=== PATIENT | male | born 1950 | race Caucasian/White ===

== ENCOUNTER → 2016-10-04 | Outpatient (CLI) | payer OTHER ==
--- NOTE | 2016-10-04 07:41 | DIAGNOSTIC IMAGING REPORT ---
CHEST CT WITH CONTRAST CT DOSE: 1227.50 mGy.cm HISTORY: NON HODGKIN'S LYMPHOMA TECHNIQUE: Multiaxial CT images of the chest were performed following the intravenous administration of contrast. COMPARISON: Chest CT 05/15/2016. FINDINGS: Left neck base/supraclavicular lymphadenopathy is again noted. This is not significantly change. The dominant lymph node continues to measure 3.6 cm. Single mildly enlarged left superior mediastinal lymph node measuring 2 cm. This is also unchanged. No new mediastinal or hilar lymphadenopathy. The heart is normal in size. No pleural or pericardial effusions. Mild right axillary lymphadenopathy remains unchanged. Dominant lymph node measures 15 mm. Mild diffuse esophageal thickening persists. Bilateral adrenal gland nodularity remains unchanged. Normal caliber thoracic aorta with no evidence for dissection. The central pulmonary arteries are patent. No suspicious lytic or blastic osseous lesions. No pneumothorax. Small amount of mucoid material within the trachea. Mild emphysema. Punctate calcified granuloma within the lingula and a small slightly nodular scarlike density. This remains stable. Scarlike density at the base of the right middle lobe remains unchanged. No new focal lung consolidations. IMPRESSION: 1. No change in the lymphadenopathy within the neck and chest as described above. 2. Small amount of mucoid material within the trachea. No new focal lung consolidations to suggest pneumonia. 3. Mild emphysema. 4. Mild diffuse esophageal wall thickening, unchanged. 5. Please refer to the same day abdomen and pelvis CT for further evaluation of the upper abdominal structures. Electronically signed by: Ethan Worthington M.D. 10/04/2016 7:39 AM Dictated Date/Time: 10/04/2016 7:30 AM
--- NOTE | 2016-10-04 07:59 | DIAGNOSTIC IMAGING REPORT ---
CT SCAN OF THE ABDOMEN AND PELVIS WITH IV CONTRAST CLINICAL HISTORY: Non-Hodgkin's lymphoma. COMPARISON STUDY: Abdominal CT dated 05/15/2016 and 04/18/2008. PET/CT dated 11/15/2015. TECHNIQUE: Following the IV administration of 116 cc of Optiray 320, CT scan of the abdomen and pelvis is performed from the lung bases to the proximal femora. Images are reviewed in the axial, sagittal, and coronal planes. IV contrast was administered without complication. Automated dose control exposure was utilized. FINDINGS: Lung bases: The heart is normal in size and without pericardial effusion. The lung bases are clear. There is a tiny hiatal hernia. Liver: The contrast-enhanced liver is normal in size, contour, and attenuation. There is no intrahepatic biliary ductal dilatation. The hepatic veins and portal veins are patent. Gallbladder: Unremarkable. Spleen: Normal in size and attenuation measuring 12.2 cm in length. Pancreas: Unremarkable. Adrenal glands: There is a 1.5 cm indeterminate left adrenal nodule seen on image #116. A 0.8 cm right adrenal nodule is seen image #101. These are unchanged dating back to 2007 and of doubtful significance. Kidneys: The contrast enhanced kidneys are normal in size and without hydronephrosis. The kidneys enhance symmetrically. Bilateral renal cysts measure up to 2.2 cm. Additional subcentimeter cortical hypodensities also likely represent cysts but are too small for definitive characterization. Abdominal vasculature: The abdominal aorta is normal in course and caliber noting mild to moderate atherosclerotic calcification. Bowel: The cecum is located in the right upper quadrant. No bowel obstruction is identified. The appendix is well-visualized and normal. Peritoneum: There is no intraperitoneal free air or abdominal ascites. Lymphadenopathy: There are mildly enlarged retroperitoneal lymph nodes. A left periaortic node on image #171 measures 1.2 x 1.0 cm (previously measured 1.6 x 1.3 cm) A retrocaval node on image #195 measures 1.4 x 1.8 cm right the cyst previously measured 1.6 x 2.1 cm). A right iliac chain node on image #224 measures 1.7 x 1.5 cm (previously measured 2.3 x 1.3 cm), and a right iliac chain node on image #266 measures 1.4 x 2.1 cm (previously measured 2.2 x 2.8 cm). There is no upper abdominal, mesenteric, pelvic sidewall, or inguinal lymphadenopathy. Pelvic viscera: The the prostate gland is mildly enlarged and heterogeneous. The bladder is normal as visualized. There are small bilateral fat-containing hernias, right larger than left. Skeletal structures: There is mild lumbosacral spondylosis. No lytic or blastic lesions are seen. IMPRESSION: 1. Modest decrease in size of enlarged retroperitoneal and iliac chain lymph nodes as compared to the 05/15/2016 examination. 2. No progressive adenopathy is identified in the abdomen or pelvis. 3. The spleen is normal in size. 4. No acute infectious or inflammatory findings are identified. 5. Additional changes as above. Electronically signed by: Kareem Jon M.D. 10/04/2016 7:58 AM Dictated Date/Time: 10/04/2016 7:46 AM
== END | disposition home or self-care (01) ==
LOC: C.CTS 06:31
PROVIDERS: ATTEND Internal Medicine Hematology & Oncology
DX: C82.11 Follicular lymphoma grade II, lymph nodes of head, face, and neck (principal)

== ENCOUNTER → 2017-04-02 | Outpatient (CLI) | payer OTHER ==
[~2017-04-02] MED LIST: OPTIRAY 320 IV PRN
--- NOTE | 2017-04-02 06:56 | DIAGNOSTIC IMAGING REPORT ---
CHEST CT WITH CONTRAST CT DOSE: HISTORY: Lymphoma Non-Hodgkin LYMPHOMA TECHNIQUE: Multiaxial CT images of the chest were performed following the intravenous administration of contrast. COMPARISON: 10/04/2016 FINDINGS: Generally stable lower left neck base and supraclavicular adenopathy. Dominant node measures 3.5 cm which is to given statistical difference is unchanged. Mediastinal nodes are unaltered. No significant or bulky adenopathy at this time is appreciated. Right axillary adenopathy is slightly diminished. Lungs remain clear. Thoracic aorta is normal in course and caliber. IMPRESSION: Stable CT of the chest. No new or progressive adenopathy. Electronically signed by: Jarred Madsen M.D. 04/02/2017 6:55 AM Dictated Date/Time: 04/02/2017 6:48 AM
--- NOTE | 2017-04-02 07:07 | DIAGNOSTIC IMAGING REPORT ---
ABD/PELVIS IV AND ORAL CONT HISTORY: 58-year-old male presents for follow-up exam of non-Hodgkin's lymphoma. COMPARISON: CT abdomen and pelvis 10/04/2016 TECHNIQUE: Axial CT images of the abdomen and pelvis were obtained following the intravenous administration of 94 mL Optiray 320. Oral contrast was also administered. FINDINGS: There is minimal subsegmental pleural parenchymal scarring within the anterior lung bases bilaterally. There is no pneumoperitoneum. Inferior cardiac chambers are unremarkable. The liver, spleen, pancreas, adrenal glands and gallbladder are within normal limits. There are multiple stable appearing low attenuating lesions of the kidneys bilaterally, several which are too small to characterize however suggest cysts. The largest lesion within the lateral aspect of the interpolar right kidney, 2.0 x 1.9 cm. No renal calculi or hydronephrosis. There is mild circumferential wall thickening of the distal esophagus. No bowel obstruction. The appendix appears normal within the right lower quadrant. There is moderate degree of mixed plaquing of the abdominal and iliac vasculature. There is an unchanged opacity within the mid PMs. Circumferential wall thickening of the urinary bladder is unchanged. There is improved appearance of the previously described retroperitoneal and iliac chain adenopathy. Index pericaval lymph node previously measured 1.6 x 1.0 cm on image 45 series 3 of the study dated 10/04/2016 and today measures 1.0 x 0.7 cm on image 46 of series 3. Additional index node includes a right iliac chain lymph node on image 54 of series 3 of the prior exam which measured 1.4 x 2.0 cm, now measuring 1.3 x 0.8 cm. No new adenopathy or suspicious mass lesions. No suspicious lytic or blastic bony lesions. There is advanced intervertebral disc space narrowing at the L4-L5 and L5-S1 levels. IMPRESSION: 1. Decreased size of the previously described retroperitoneal and iliac chain adenopathy suggests positive response to therapy. No new adenopathy or suspicious mass lesions are identified within the abdomen or pelvis. No splenomegaly. 2. Mild circumferential wall thickening of the distal esophagus may reflect esophagitis. This can be correlated with endoscopy if clinically indicated. 3. Additional incidental findings as above. Electronically signed by: Guzman Falcon 04/02/2017 7:05 AM Dictated Date/Time: 04/02/2017 6:54 AM
== END | disposition home or self-care (01) ==
LOC: C.CTS 06:22
PROVIDERS: ATTEND Internal Medicine Hematology & Oncology
DX: C82.11 Follicular lymphoma grade II, lymph nodes of head, face, and neck (principal)

== ENCOUNTER → 2017-06-24 | Outpatient (CLI) | payer OTHER ==
--- NOTE | 2017-06-24 16:00 | DIAGNOSTIC IMAGING REPORT ---
BONE SCAN 3PHASE WHOLE BODY CLINICAL HISTORY: 67 years-old Male presenting with PAIN/SWELLING LEFT KNEE, AVN VS STRESS FX, left hip pain, acute left knee pain history of lymphoma. TECHNIQUE: Following the IV administration of 27 mCi of technetium 99m MDP, three-phase bone scan of the legs was performed. Anterior and posterior flow images as well as anterior and posterior blood pool phase images were acquired. Bone phase imaging of whole body was performed at three hours in multiple obliquities. COMPARISON: Correlation made to PET/CT from 11/15/2015. FINDINGS: Initial flow images centered at the knees demonstrate symmetric distribution of radiotracer from the vasculature to the soft tissues. Blood pool images demonstrate no focal increased uptake between the levels of the proximal to mid femoral diaphyses and ankles. Mild relatively increased uptake bilaterally in the region of the proximal tibiofibular articulation may be degenerative. Notably the hip joints were excluded from the [id number]. 3 hour delayed whole body imaging demonstrates expected excretion of radiotracer into the urinary collecting system. Focal bilateral uptake at the acromioclavicular joints likely degenerative. No other focal increased uptake is appreciated. Specifically, the hips and knees appear symmetric and within normal limits. IMPRESSION: 1. Mild degenerative changes at the bilateral acromioclavicular joints and potentially at the proximal tibiofibular articulations bilaterally. No other abnormality. Electronically signed by: Gorge Mena M.D. 06/24/2017 3:59 PM Dictated Date/Time: 06/24/2017 3:52 PM
== END | disposition home or self-care (01) ==
LOC: C.NUCL 12:24
DX: M25.562 Pain in left knee (principal)

== ENCOUNTER → 2018-02-10 | Outpatient (CLI) | payer OTHER ==
--- NOTE | 2018-02-10 07:12 | DIAGNOSTIC IMAGING REPORT ---
CT SCAN OF THE CHEST WITH IV CONTRAST CLINICAL HISTORY: Lymphoma. COMPARISON STUDY: Chest CT scans dated 04/02/2017 and 03/17/2008. TECHNIQUE: Following the IV administration of 93 cc of Optiray 320, CT scan of the thorax was performed from the thoracic inlet to the upper abdomen. Images are reviewed in the axial, sagittal, and coronal planes. IV contrast was administered without complication. A dose lowering technique was utilized adhering to the principles of ALARA. CT DOSE: 923.72 mGy.cm FINDINGS: Thyroid: Imaged portions of the thyroid gland are normal in size and attenuation. Thoracic aorta: The thoracic aorta is normal in caliber and demonstrates standard 3-vessel arch anatomy. No dissection is seen. Pulmonary vasculature: The pulmonary trunk is normal in caliber. There are no filling defects identified in the central pulmonary vessels to indicate pulmonary embolus. Note that this examination was not protocoled for evaluation of the pulmonary arteries. Heart: The heart is normal in size and without pericardial effusion. There are coronary artery calcifications. Lungs and pleural spaces: Mild emphysematous change is identified. There is no airspace consolidation or pleural effusion. Mild diffuse peribronchial thickening is noted. Minimal secretions are noted in the trachea. Lower neck: Cervical lymphadenopathy is partially visualized. This appears modestly progressed from the 04/02/2017 examination. A left supraclavicular node on image #1 measures at least 4.2 x 3.8 cm (previously measuring 3.6 x 2.8 cm). Mediastinum: A high left prevascular node on image #46 measures 3.3 x 2.1 cm (previously measuring 2.7 x 1.6 cm). No additional enlarged mediastinal lymph nodes are identified. Kerri: Clear. Axillae: There is no axillary lymphadenopathy. Upper abdomen: There is a tiny hiatal hernia. A 1.7 cm left adrenal nodule is unchanged from previous. This likely represents an adenoma but cannot be definitively characterized. The spleen is normal in size measuring 8.6 cm and length. A 9 mm hypervascular focus in the left hepatic lobe as seen on image #237. This is unchanged from previous and likely represents a small flash filling hemangioma. Skeletal structures: No lytic or blastic bony lesions are seen. Mild degenerative change is noted throughout the thoracic spine and in the shoulders. IMPRESSION: 1. There are enlarged lymph nodes identified in the lower neck and superior mediastinum. These have modestly increased in size from the 04/02/2017 examination. 2. No hilar or axillary adenopathy is seen. The spleen is normal in size. 3. Mild emphysema. 4. No airspace consolidation or pleural effusion is identified. 5. Mild diffuse peribronchial thickening suggests reactive airway disease. 6. Additional findings as above. Electronically signed by: Kareem Jon M.D. 02/10/2018 7:10 AM Dictated Date/Time: 02/10/2018 7:03 AM
--- NOTE | 2018-02-10 08:01 | DIAGNOSTIC IMAGING REPORT ---
ABDOMEN AND PELVIS CT WITH IV AND ORAL CONTRAST CT DOSE: HISTORY: Lymphoma. TECHNIQUE: Multiaxial CT images of the abdomen and pelvis were performed following the use of intravenous and oral contrast. A dose lowering technique was utilized adhering to the principles of ALARA. COMPARISON STUDY: Abdomen and pelvis CT 04/02/2017. FINDINGS: A punctate calcified granuloma seen within the lingula. Otherwise, the lungs are clear. No suspicious lytic or blastic osseous lesions. Small fat-containing right inguinal hernia. The liver, gallbladder, spleen, right adrenal gland, and pancreas are unremarkable. No hydronephrosis. Stable bilateral renal hypodense lesions. Stable left adrenal gland nodule. Retroperitoneal lymph nodes remain stable and measure subcentimeter in size. Therefore, the the use do not meet CT criteria for pathologic involvement. No mesenteric lymphadenopathy. The right common iliac lymph nodes have decreased in size. Dominant lymph node measures 8 mm, previously measuring 10 mm. Mild calcified plaque within the normal caliber abdominal aorta. No inguinal lymphadenopathy. The bladder wall is mildly thickened which may be due to underdistention. No bowel wall thickening or obstruction. Normal appendix. Prostate gland is mildly enlarged. IMPRESSION: 1. Stable subcentimeter retroperitoneal lymph nodes. 2. Decrease in size in the subcentimeter right common iliac lymph nodes. 3. No new lymphadenopathy identified. 3. Additional chronic findings as described above. Electronically signed by: Ethan Worthington M.D. 02/10/2018 7:59 AM Dictated Date/Time: 02/10/2018 7:45 AM
== END | disposition home or self-care (01) ==
LOC: C.CTS 06:26
PROVIDERS: ATTEND Internal Medicine Hematology & Oncology
DX: C82.11 Follicular lymphoma grade II, lymph nodes of head, face, and neck (principal)

== ENCOUNTER → 2018-05-22 | Outpatient (CLI) | payer OTHER | END | disposition home or self-care (01) | LOC: C.PATHSPEC 16:47 | PROVIDERS: ATTEND Plastic Surgery | DX: D18.01 Hemangioma of skin and subcutaneous tissue (principal) ==

== ENCOUNTER 2024-06-04 06:49 | Inpatient (IN) ==
--- OUTSIDE RECORDS SUMMARY | 2024-06-04 06:52 | External Medical Summary | Summary of Care ---
Author Name Unknown Organization [facility] Address [address] [place] [address] Phone [phone] Care Team Providers Care Relief Master Name Role Phone Justyn Reardon DO Primary Care Provider [phone] Reason for Visit * Reason Onset Date Comments Test Results Lab 03/05/2024 Encounter Details Date Type Department Care Team (Late st Contact Info) Description 03/05/2024 Telephone Hematology/Oncology [facility] [address] [facility] [place] [address] Vernon Coleman MD [address] [facility] [place] [address] Test Results Lab Allergies No known active allergiesdocumented as of this encounter (statuses as of 03/05/2024) Medications Medication Sig Dispensed Refills Start Date End Date Status buPROPion HCl ER (XL) 150 MG Oral Tablet Extended Release 24 Hour (Wellbutrin XL)Indications:Cigare tte nicotine dependence without complication Take 1 Tablet by mouth in the morning and 1 Tablet before bedtime. 180 Tablet 3 03/28/2023 Active documented as of this encounter (statuses as of 03/05/2024) Active Problems Problem Noted Date Diagnosed Date Follicular lymphoma grade II 05/19/2018 Lymph node enlargement 01/02/2009 Sleep apnea 04/23/2005 documented as of this encounter (statuses as of 03/05/2024) Resolved Problems Problem Noted Date Diagnosed Date Resolved Date Prediabetes 03/06/2020 10/09/2023 Overview: Per Prediabetes protocol documented as of this encounter (statuses as of 03/05/2024) Immunizations Name Administration Dates Next Due COVID-19 mRNA, LNP-s, No Pre serve, 2-Dose Series ([employer]) 07/16/2021,10/06/2020,09/15/2020 COVID-19, LNP-s, No Preserve , Sudhir-sucrose, Ages 12+ (Pfizer) 01/17/2022 COVID-19, MRNA-LNP, 23-24, P F, 30 MCG/0.3 mL, 12 YRS AND ABOVE, IM (PFIZER-Comirnaty) 08/27/2023 Covid-19, Mrna, Lnp-s, Pf, B ivalent, 30 Mcg, IM, 12 yrs and above (Pfizer) 08/01/2022 Pneumococcal Conjugate Vacc, 13 Valent (Prevnar) 05/19/2018 Pneumococcal Conjugate Vacci ne, 20-valent ([id number]) 03/28/2023 Seasonal Influenza, Quadriva lent Hd, 65+ Yrs 07/27/2021,07/14/2020 Seasonal Influenza, Split, I IV3, With Preserve, Inj 06/29/2015,07/17/2010 TDAP (age 10 and older)(Boostrix) 03/28/2023 documented as of this encounter Social History Tobacco Use Types Packs/Day Years Used Date Smoking Tobacco: Former Cigarettes 1 25 0 09/29/1974 - 09/29/1999 Passive Smoke Exposure: Past Smokeless Tobacco: Never Alcohol Use Standard Drinks/Week Comments Yes 0 (1 standard drink = 0.6 oz pur e alcohol) Occ PHQ-2 Answer Date Recorded PHQ Adult Total Score 0 03/28/2023 Hunger Vital Sign Answer Date Recorded Within the past 12 months, y ou worried that your food would run out before you got the money to buy more. Never true 03/28/20 23 Within the past 12 months, t he food you bought just didn't last and you didn't have money to get more. Never true 03/28/2023 Sex and Gender Information Value Date Recorded Sex Assigned at Not on file Gender Identity Not on file Sexual Orientation Not on file Job Start Date Occupation Industry Not on file Not on file Not on file documented as of this encounter Miscellaneous Notes * Telephone Encounter - Shasha Alvarez LPN - 03/05/2024 3:16 PM EDT Called and spoke with patient, informed him of lab result note from Provider below. Patient verbalized understanding, denies any further needs or requests. * Telephone Encounter - Shasha Alvarez LPN - 03/05/2024 3:14 PM EDT ----- Message from Vernon Coleman MD sent at 03/05/2024 1:49 PM EDT ----- -LDH --> 128 which is in normal range (03/03/2024). documented in this encounter Plan of Treatment Upcoming Encounters Date Type Department Care Team (Late st Contact Info) Description 03/29/2024 10:00 AM EDT Office Visit Family Practice [address] [place] [address] [address] [place] [address] Justyn Reardon, [address] [place] [address] 07/23/2024 8:45 AM EDT Office Visit Hematology/Oncology [facility] [address] [place] [id number] Vernon Coleman MD [address] [place] [address] Scheduled Procedures Name Priority Associated Diagnoses Date/Ti me COLONOSCOPY FLEXIBLE PROXIMA L DIAGNOSTIC Recall History of colon polyps Family history of colon cancer Health Maintenance Due Date Last Done Comments Zoster Vaccines (1 of 2) 1969 COVID-19 Vaccine ( season) 2023 08/27/2023, 08/01/2022, 01/17/2022, Additional history exists Depression Screening 03/28/2024 03/28/2023 Influenza Vaccine (FLU shot) (Season Ended) 2024 07/27/2021, 07/14/2020, 06/29/2015, Additional history exists Colonoscopy 11/22/2025 11/22/2022, 10/31, 04/24/2018, Additional history exists DTaP,Tdap,and Td Vaccines (3 - Td or Tdap) 03/28/2033 03/28/2023, 01/25/2011 Pneumococcal Vaccine: 65+ Years Completed 03/28/2023, 05/19/2018 GARDASIL-HPV IMMUNIZATION SERIES Aged Out No longer eligible based on patient's age to complete this topic MENINGOCOCCAL (MENACTRA/MENVEO) Aged Out No longer eligible based on patient's age to complete this topic documented as of this encounter Medical Devices Not on filedocumented as of this encounter Care Teams Relief Master Relationship Specialty Start Date End Date Justyn Reardon DO [address] [place] [address] PCP - General Internal Medicine 06/06/23 documented as of this encounter
--- OUTSIDE RECORDS SUMMARY | 2024-06-04 06:52 | External Medical Summary | Summary of Care ---
Author Name Unknown Organization [facility] Address [address] [place] [address] Phone [phone] Care Team Providers Care Pool Coordinator Name Role Phone Justyn Reardon DO Primary Care Provider [phone] Encounter Details Date Type Department Care Team (Late st Contact Info) Description 03/03/2024 Result Scan Unspecified Department Vernon Coleman MD [address] [place] [address] <No scans attached> Allergies No known active allergiesdocumented as of [...] mRNA, LNP-s, No Pre serve, 2-Dose Series ([employer]) 07/16/2021,10/06/2020,09/15/2020 COVID-19, LNP-s, No Preserve , Sudhir-sucrose, Ages 12+ (Pfizer) 01/17/2022 COVID-19, MRNA-LNP, 23-24, P F, 30 MCG/0.3 mL, 12 YRS AND ABOVE, IM ([employer]-Comirnat) 08/27/2023 Covid-19, Mrna, Lnp-s, Pf, B ivalent, 30 Mcg, IM, 12 yrs and above ([employer]) 08/01/2022 Pneumococcal Conjugate Vacc, 13 Valent (Prevnar) 05/19/2018 Pneumococcal Conjugate Vacci ne, 20-valent ([id number]) 03/28/2023 Seasonal Influenza, Quadriva lent Hd, 65+ [...] on file documented as of this encounter Plan of Treatment Upcoming Encounters Date Type Department Care Team (Late st Contact Info) Description 03/29/2024 10:00 AM EDT Office Visit Family Practice [address], [place] [address] [place] [address] Justyn Reardon DO [address] [place] [address] 07/23/2024 8:45 AM EDT Office Visit Hematology/Oncology [facility] [place] [address] [place] [phone] [facility] [address] [facility] [address] Scheduled Procedures Name Priority Associated Diagnoses Date/Ti [...] Not on filedocumented as of this encounter Procedures Procedure Name Priority Date/Time Associated Diagnosis Comments OUTSIDE LAB RESULTS 03/03/2024 documented in this encounter Results * OUTSIDE LAB RESULTS (03/03/2024) 03/03/2024 Vernon Coleman MD LABORATORY documented in this encounter Care Teams Pool Coordinator Relationship Specialty Start Date End Date Justyn Reardon DO [address] [place] [address] PCP - General Internal Medicine 06/06/23 documented as of this encounter
--- OUTSIDE RECORDS SUMMARY | 2024-06-04 06:52 | External Medical Summary | Summary of Care ---
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 180 Tablet 3 03/28/2023 Active documented as of this encounter (statuses as of 04/08/2024) Active Problems Problem Noted Date Diagnosed Date Follicular lymphoma grade II 05/19/2018 Lymph node enlargement 01/02/2009 Sleep apnea 04/23/2005 documented as of this encounter (statuses as of 04/08/2024) Resolved Problems Problem Noted Date Diagnosed Date Resolved Date Prediabetes 03/06/2020 10/09/2023 Overview: Per Prediabetes protocol documented as of this encounter (statuses as of 04/08/2024) Immunizations Name Administration Dates Next Due COVID-19 mRNA, LNP-s, No Pre serve, 2-Dose Series ([employer]) 07/16/2021,10/06/2020,09/15/2020 COVID-19, LNP-s, No Preserve , Sudhir-sucrose, Ages 12+ (Pfizer) 01/17/2022 COVID-19, MRNA-LNP, 23-24, P F, 30 MCG/0.3 mL, 12 YRS AND ABOVE, IM ([facility]) 04/05/2024,08/27/2023 Covid-19, Mrna, Lnp-s, Pf, B ivalent, 30 Mcg, IM, 12 yrs and above (Greats) 08/01/2022 Pneumococcal Conjugate Vacc, 13 Valent (Prevnar) 05/19/2018 Pneumococcal Conjugate Vacci ne, 20-valent ([id number]) 03/28/2023 Seasonal Influenza, Quadriva lent Hd, 65+ Yrs 07/27/2021,07/14/2020 Seasonal Influenza, Split, I IV3, With Preserve, Inj 06/29/2015,07/17/2010 TDAP (age 10 and older)(Boostrix) 03/28/2023 Zoster Vaccine Recombinant (Shingrix) 04/05/2024 documented as of this encounter Social History Tobacco Use Types Packs/Day Years Used Date Smoking Tobacco: Former Cigarettes 1 25 0 09/29/1974 - 09/29/1999 Passive Smoke Exposure: Past Smokeless Tobacco: Never Tobacco Cessation:Counseling Given: Yes Alcohol Use Standard Drinks/Week Comments Yes 0 (1 standard drink = 0.6 oz pur e alcohol) Occ PHQ-2 Answer Date Recorded PHQ Adult Total Score 0 04/05/2024 Hunger Vital Sign Answer Date Recorded Within the past 12 months, y ou worried that your food would run out before you got the money to buy more. Never true 03/28/20 23 Within the past 12 months, t he food you bought just didn't last and you didn't have money to get more. Never true 03/28/2023 Childcare Answer Date Recorded Do you feel overwhelmed with taking care of a child, family member or friend? No 03/28/2023 Does your family need help f inding childcare? (Household - for ages 0-17 years) Not on file 03/28/2023 Clothing Answer Date Recorded Have you been unable to get clothing when it was really needed? No 03/28/2023 Is your family able to get c lothes or diapers when needed? (Household - for ages 0-17 years) Not on file 03/28/2023 Personal Safety Answer Date Recorded Do you feel unsafe or have concerns for your saf ety? No 03/28/2023 Do you have concerns for you r family's safety? (Household - for ages 0-17 years) Not on file 03/28/2023 Utilities Answer Date Recorded Do you have trouble paying y our heating, water, or electric bill? (Adult - for ages 18 years and over) Not on file 03/30/2024 Is your family able to pay t he heat, water, or electric bill? (Household - for ages 0-17 years) Not on file 03/30/2024 Does your family have access to good internet? (Household - for ages 0-17 years) Not on file 03/30/2024 Employment Status Answer Date Recorded Are you unemployed or without regular income? No 03/28/2023 Does the household have a re gular source of income? (Household - for ages 0-17 years) Not on file 03/28/2023 Social Connections Answer Date Recorded How often do you feel lonely or isolated from those around you? (Adult - for ages 18 years and over) Not on file 03/30/2024 Financial Resource Strain Answer Date R ecorded Do you have any trouble payi ng for your medications, or do you think you might in the future? No 03/28/2023 Does your family have troubl e paying for medicine? (Household - for ages 0-17 years) Not on file 03/28/2023 Transportation Needs Answer Date Record ed READ ONLY Do you have troubl e getting a ride to medical visits or work? Never True 03/28/2023 Does your family have a hard time getting a ride to doctors visits? (Household - for ages 0-17 years) Not on file 03/28/2023 Has lack of transportation k ept you from medical appointments, meetings, work, or from getting things needed for daily living? Check all that apply. (Adult - for ages 18 years and over) Not on file 03/28/2023 Do you (or your family) have trouble finding or paying for a ride (transportation)? (Household - for ages 0-17 years) Not on file 03/28/2023 Housing Stability Answer Date Recorded Do you currently live in a s helter or have no steady place to sleep at night? No 03/28/2023 READ ONLY Do you think you a re at risk of becoming homeless? No 03/28/2023 Does your family worry about paying for your home or becoming homeless? (Household - for ages 0-17 years) Not on file 0 03/28/2023 Are you homeless or worried that you might be in the future? (Adult - for ages 18 years and over) Not on file Are you (or your family) pineda eless or worried that you might be in the future? (Household - for ages 0-17 years) Not on file Food Insecurity Answer Date Recorded Do you need food for this week? No 03/28/2023 Are you able to get enough f ood for your family? (Household - for ages 0-17 years) Not on file 03/28/2023 Does your family need food t his week? (Household - for ages 0-17 years) Not on file 03/28/2023 Do you always have enough fo od for your family? (Household - for ages 0-17 years) Not on file 03/28/2023 Sex and Gender Information Value Date Recorded Sex Assigned at Male 04/05/2024 3:31 PM EDT Gender Identity Male 04/05/2024 3:31 PM EDT Sexual Orientation Straight 04/05/2024 3: 31 PM EDT Job Start Date Occupation Industry Not on file Not on file Not on file documented as of this encounter Last Filed Vital Signs Vital Sign Reading Time Taken Comments Blood Pressure 120/60 04/05/2024 3:32 PM EDT Pulse 82 04/05/2024 3:32 PM EDT Temperature 36.2 C (97.1 F) 04/05/2024 3:32 PM ED T Respiratory Rate 16 04/05/2024 3:32 PM EDT Oxygen Saturation 95% 04/05/2024 3:32 PM EDT Inhaled Oxygen Concentration - - Weight 69.8 kg (153 lb 12.8 oz) 04/05/2024 3:32 PM EDT Height 167 cm (5' 5.75") 04/05/2024 3:32 PM EDT Body Mass Index 25.01 04/05/2024 3:32 PM EDT documented in this encounter Patient Instructions * Patient Instructions* Jennifer Bui, METALIZER - 04/05/2024 3:31 PM EDT Patient Instructions - Fall Prevention (This education is for all patients over 65 regardless of symptoms) Remember to take your current medications as prescribed. In order to prevent falls, you are encouraged to: Exercise Utilize assistive/adaptive devices Avoid multifocal lenses when walking Avoid hazards in home Maintain a regular toileting schedule Any questions please contact our office. Preventing Falls in the Home (This education is for all patients over 65 regardless of symptoms) As you get older, falls are more likely. Thats because your reaction time slows. Your muscles and joints may also get stiffer, making them less flexible. Illness, medications, and vision changes can also affect your balance. A fall could leave you unable to live on your own. To make your home safer, follow these tips: Floors Put nonskid pads under area rugs Remove throw rugs Replace worn floor coverings Tack carpets firmly to each step on carpeted stairs. Put nonskid strips on the edges of uncarpeted stairs Keep floors and stairs free of clutter and cords Arrange furniture so there are clear pathways Clean up any spills right away Bathrooms Install grab bars in the tub or shower Apply nonskid strips or put a nonskid rubber mat in the tub or shower Sit on a bath chair to bathe Use bathmats with nonskid backing Lighting Keep a flashlight in each room Put a nightlight along the pathway between the bedroom and the bathroom [employer] Patient Education Copyright 2008 - 2010 [employer] except where otherwise noted Preventing Falls: Exercises to Improve Balance, Flexibility, Strength, and Staying Power (This education is for all patients over 65 regardless of symptoms) Certain types of exercises may help make you less likely to fall. Try the ones below. Or do other exercises that your healthcare provider suggests. Depending on your health, you may need to start slowly. Dont let that stop you. Even small amounts of exercise can help you. Be sure to talk to yourhealthcare provider before starting any exercise program. Improve Balance Many types of exercise can help improve balance. Dago chi and yoga are good examples. Heres another one to try. You can do it anytime and almost anywhere. Stand next to a counter or solid support. Push yourself up onto your tiptoes. Hold for 5 seconds. If you start to lose your balance, hold on to the counter. Rest and repeat 5 times. Work up to holding for 20 to 30 seconds, if you can. Increase Flexibility Being more flexible makes it easier for you to move around safely. Try exercises like the seated hamstring stretch. Sit in a chair and put one foot on a stool. Straighten your leg and reach with both hands down either side of your leg. Reach as far down your leg as you can. Hold for about 20 seconds. Go back to the starting position. Then repeat 5 times. Switch legs. Build Strength Resistance exercises help build strength. You can do them without equipment. Or you can use weights, elastic bands, or special machines. One such exercise is called the biceps curl. You can hold a 1 pound weight or even a can of soup. Do this exercise at least 3 times a week. Strive for everyday. Sit up straight in a chair. Keep your elbow close to your body and your wrist straight. Bend your arm, moving your hand up to your shoulder. Then slowly lower your arm. Repeat 5 times. Switch to the other arm. Build Your Staying Power Aerobic exercises make your heart and lungs stronger so you can keep moving longer. Walking and swimming are two of the best types of exercises you can do. Using a stationary bike is great, too. Find an aerobic exercise that you enjoy. Start slowly and build up. Even 5 minutes is helpful. Aimfor a goal of 30 minutes, at least 3 times a week. You dont have to do 30 minutes in one session. Break it up and walk a little throughout the day. More Helpful Tips Start easy. Slowly work up to doing more. Talk with your healthcare provider about the best exercises for you. Call senior centers or health clubs about exercise programs. If needed, have a family member watch you walk every so often to check your stability. Exercise with a friend. Choose an activity you both enjoy. Try exercises that you can do anytime, anywhere. Here are two examples. Have someone with you when you first try these: Practice walking by placing one foot right in front of the other. Stand up and sit down 10 times. Repeat this throughout the day. [employer] Patient Education Copyright 2008 [employer] except where otherwise noted. Preventing Falls: Moving Safely Using a Cane or Walker (This education is for all patients over 65 regardless of symptoms) Keep the cane away from your feet so you dont trip. A walking aid, such as a cane or walker, can help you stay more independent and avoid falls. Remember to keep your walking aid within easy reach when youre in a chair or in bed. And learn how to use it safely so you dont injure yourself. Using a Cane If you have a stronger side, hold the cane on that side. Get your balance. Move the cane and your weaker leg forward. Support your weight on both the cane and your weaker side. Step with your stronger leg. Start again from step 1. If youre using a folding walker, be sure you know how to lock it open. Check that its locked open before each use. Using a Walker Roll the walker (or lift it, if youre using one without wheels) forward about 12 inches. Step forward with your weaker leg first. Use the walker to help keep your balance. Bring your other foot forward to the center of the walker. Start again from step 1. Helpful Tips Check with your healthcare provider about the right walking aid to use. Ask about a walker with a seat attached. Check the tips of your cane or walker to make sure they have nonskid covers. Move slowly from room to room. Dont lechuga. Sit down to get dressed. Use a carmen pack or backpack to keep your hands free. Get help for jobs that mean climbing, even on a stepstool. [employer] Patient Education Copyright 2008 [employer] except where otherwise noted. Treating Urinary Incontinence in Men (This education is for all patients over 65 regardless of symptoms) You can't always control the release of urine. You may leak urine. Or you may not be able to hold your urine until you can get to a bathroom. This is called urinary incontinence. The problem can be managed. Talk to your doctor about your treatment options. Taking Medications Prescription medications may help you. They may: Help the sphincter to work better. (This is the muscle that closes to keep urine from leaking out of the bladder.) Help stop the bladder from say too often to push urine out. Help the bladder muscles contract with more force. Help relax the sphincter muscle and allow urine to flow more freely. Making Changes to Your Routine Certain changes in your daily routine may help. These include: Avoiding caffeine and alcohol. Using timed voiding. This is following a schedule for drinking fluids and urinating. Doing Kegel exercises daily. These exercises involve tightening the muscles in your sphincter and around your bladder to help strengthen them. Your doctor can explain how to do them. Using a Catheter A catheter is a narrow tube that is inserted through the urethra into the bladder. It drains urine.A condom catheter covers the penis. It channels urine into a collection bag. It is worn most of thetime. Intermittent catheterization means inserting a catheter to drain the bladder, then removing it. This is done on a regular schedule. Having Surgery If other options don't work, surgery may be recommended. If surgery is an option, your healthcare provider can discuss it with you and explain its risks and benefits. Healing After Prostate Surgery Surgery on the prostate gland can cause incontinence. Most often, the incontinence is only for a short time. It clears up when healing is complete. Very rarely, prostate surgery can result in permanent incontinence. ~~PATIENT INSTRUCTIONS FOR SHINGRIX VACCINE~~ Possible side effects of Shingrix vaccine, (shingles), are usually mild and can include: 1. Soreness or redness at injection site 2. Low grade fever 3. Body aches You may use a fever / pain reducing medication as needed for these symptoms. LET YOUR DOCTOR KNOW IMMEDIATELY IF YOU HAVE DIFFICULTY BREATHING OR SWALLOWING, EXPERIENCE ITCHINGOF FEET OR HANDS, HAVE SWELLING OF EYES, FACE OR INSIDE OF NOSE. ~~PATIENT INSTRUCTIONS FOR SHINGRIX VACCINE~~ Possible side effects of Shingrix vaccine, (shingles), are usually mild and can include: 1. Soreness or redness at injection site 2. Low grade fever 3. Body aches You may use a fever / pain reducing medication as needed for these symptoms. LET YOUR DOCTOR KNOW IMMEDIATELY IF YOU HAVE DIFFICULTY BREATHING OR SWALLOWING, EXPERIENCE ITCHINGOF FEET OR HANDS, HAVE SWELLING OF EYES, FACE OR INSIDE OF NOSE. 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 He is feeling well and continues to work without difficulty. No chest pain or shortness of breath have occurred. Weight is stable and appetite is good. No night sweats or fatigue. He continues to follow with Dr. Coleman for Oncologic care. Patient Active Problem List Diagnosis Sleep apnea Lymph node enlargement Follicular lymphoma grade II (HCC) Current Outpatient Medications Medication Sig Dispense Refill buPROPion HCl ER (XL) 150 MG Oral Tablet Extended Release 24 Hour (Wellbutrin XL) Take 1 Tablet by mouth in the morning and 1 Tablet before bedtime. 180 Tablet 3 No current facility-administered medications for this visit. The patient's medication list was reviewed and updated as needed. Past Medical History: Diagnosis Date Benign neoplasm of colon 10/07/11 hyperplastic polyps repeat colonoscopy in 5 years Other specified forms of hearing loss Past Surgical History: Procedure Laterality Date COLONOSCOPY W/ LESION REMOVAL, SNARE 05/23/2008 repeat 2-3 yrs COLONOSCOPY W/ LESION REMOVAL, SNARE polyps at appendiceal oriface proximal and, distal sigmoid colon, hyperplastic, COLONOSCOPY, DIAGNOSTIC (RECTUM) 04/24/2018 adenomatous & hyperplastic polyps, repeat 3 yrs/[facility] COLON[facility], [facility]AG[facility]STIC (RECTUM) 11/22/2022 benign adenomatous polyps, repeat 3 yrs / COLONOSCOPY FLEXIBLE PROXIMAL DIAGNOSTIC performed by Rock Pena MD at ENDOSCOPY [facility] COLONOSCOPY, GI REFERRAL OP 2002 WNL REMOVE CATARACT, INSERT LENS PROSTH Right 06/20/2020 REMOVE CATARACT, INSERT LENS PROSTH Left 07/03/2020 RIGHT HEART CATHETERIZATION 1995 WNL SMALL BOWEL ENDOSCOPY W/BX 05/23/2008 bxs UPPER ENDOSCOPY GI REFERRAL OP 2002 WNL Review of patient's allergies indicates: No Known Allergies Review of Systems Constitutional: Negative for appetite change, fatigue and unexpected weight change. HENT: Negative for congestion, sore throat and trouble swallowing. Respiratory: Negative for cough, shortness of breath and wheezing. Cardiovascular: Negative for chest pain, palpitations and leg swelling. Gastrointestinal: Negative for abdominal pain, blood in stool, constipation, diarrhea, nausea and vomiting. Genitourinary: Negative for dysuria, frequency and hematuria. Musculoskeletal: Negative for back pain and gait problem. Neurological: Negative for dizziness, syncope and headaches. Hematological: Positive for adenopathy. Does not bruise/bleed easily. Psychiatric/Behavioral: Negative for confusion and decreased concentration. OBJECTIVE: BP 120/60 | Pulse 82 | Temp 36.2 C (97.1 F) | Resp 16 | Ht 1.67 m (5' 5.75") | Wt 69.8 kg (153 lb 12.8 oz) | SpO2 95% | BMI 25.01 kg/m | BSA 1.8 m Physical Exam Vitals and nursing note reviewed. Constitutional: General: He is not in acute distress. Appearance: Normal appearance. He is not toxic-appearing. HENT: Head: Normocephalic and atraumatic. Cardiovascular: Rate and Rhythm: Normal rate and regular rhythm. Heart sounds: Normal heart sounds. No murmur heard. No gallop. Pulmonary: Effort: Pulmonary effort is normal. Breath sounds: Normal breath sounds. No wheezing, rhonchi or rales. Abdominal: General: Bowel sounds are normal. There is no distension. Palpations: Abdomen is soft. Tenderness: There is no abdominal tenderness. Musculoskeletal: Right lower leg: No edema. Left lower leg: No edema. Neurological: Mental Status: He is alert and oriented to person, place, and time. Mental status is at baseline. Motor: No weakness. Gait: Gait normal. Psychiatric: Mood and Affect: Mood normal. Behavior: Behavior normal. Thought Content: Thought content normal. 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 Justyn Reardon DO 3:32 PM 04/08/2024 * Jennifer Bui LPN - 04/05/2024 3:32 PM EDT Does the patient have active shingles? No If, yes, patient must wait to receive vaccine till after rash is gone. Does the patient have an illness today with a fever more than 101?F? No Has the patient ever had a serious allergic reaction after receiving a vaccination? No Has the patient had a blood test showing they are not immune to Chicken Pox (rare)? No If yes, should get Chicken pox vaccine instead of shingrix. Verified patient has prescription/drug coverage. Patient has been informed that [employer] copays are close to $0. In most cases copays will be around $10. The maximum co-pay patients may get could as high as $200. not applicable Shingrix Vaccine Information Sheet has been provided. Jennifer Bui LPN 04/05/2024 3:39 PM IMMUNIZATION ADMINISTRATION DOCUMENTATION Time Out Procedure Performed: Yes Patient Identified (Ask Name/Date of ): Yes Patient allergic to latex?No VFC Stock? No Immunization(s) verified: Yes, Immunization Name: Shingrix and covid , VIS Sheet(s) given: Yes Verified Side and Site: Yes Verified Shot(s) with Parent(s)/Patient: Yes Shingrix was administered per clinic protocol. Patient received the Shingrix VIS (Vaccine Information Sheet). Jennifer Bui LPN, 04/05/2024, 3:39 PM documented in this encounter Plan of Treatment Upcoming Encounters Date Type Department Care Team (Late st Contact Info) Description 07/23/2024 8:45 AM EDT Office Visit Hematology/Oncology [facility] [address] [place] [address] [place] [phone] Vernon Coleman MD [address] [address] 04/05/2025 4:00 PM EDT Office Visit Family Practice [address] [place] [address] [place] [id number] Justyn Reardon DO [address] [place] [address] Scheduled Procedures Name Priority Associated Diagnoses Date/Ti me COLONOSCOPY FLEXIBLE PROXIMA L DIAGNOSTIC Recall History of colon polyps Family history of colon cancer Health Maintenance Due Date Last Done Comments Influenza Vaccine (FLU shot) (#1) 2024 07/27/2021, 07/14/2020, 06/29/2015, Additional history exists Zoster Vaccines (2 of 2) 05/31/2024 04/05/2024 Depression Screening 04/05/2025 04/05/2024 Colonoscopy 11/22/2025 11/22/2022, 02/2 12/2022, 04/24/2018, Additional history exists DTaP,Tdap,and Td Vaccines (3 - Td or Tdap) 03/28/2033 03/28/2023, 01/25/2011 Pneumococcal Vaccine: 65+ Years Completed 03/28/2023, 05/19/2018 COVID-19 Vaccine Completed 04/05/2024, , 08/01/2022, Additional history exists HPV (Gardasil) Vaccine Aged Out No lo nger eligible based on patient's age to complete this topic MENINGOCOCCAL (MENACTRA/MENVEO) Aged Out No longer eligible based on patient's age to complete this topic documented as of this encounter Medical Devices Not on filedocumented as of this encounter Visit Diagnoses Diagnosis 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
--- NOTE | 2024-06-04 07:09 | Emergency Department Note ---
Impression & Plan Hypoxia ADMIT ED Provider Note HPI: History obtained from patient. The patient is a 73-year-old gentleman with history of B-cell lymphoma, not currently undergoing any treatment, presents the emergency department with a chief complaint of cough, sinus congestion, and shortness of breath that is been ongoing for the past 3 days. Patient states that he recently was visiting some family members in [place] who had tested positive for COVID. Patient denies any shortness of breath however he was noted to be saturating at 86% on room air on arrival, he was placed on nasal cannula oxygen with good improvement. On my assessment in the ED the patient is otherwise hemodynamically stable, he appears to be in no acute distress on my initial assessment. Patient denies any chest pain, denies any current shortness of breath, patient is alert and oriented on arrival and does not have any focal deficits. ROS: - Per HPI Differential Diagnosis: Viral upper respiratory infection with acute bronchospasm, COPD exacerbation, acute coronary syndrome, pneumonia, pulmonary embolism, pulmonary edema, acute CHF exacerbation, amongst other potential pathologies. *Outpatient medications and allergy history reviewed. PE: General: Alert HEENT: Normocephalic, trachea midline Eyes: Extraocular eye movement is intact, no scleral erythema Pulmonary: Bilateral expiratory wheezing, no crackles Cardio: Regular rate and rhythm GI: Abdomen is soft to palpation : No suprapubic tenderness MSK: No evidence of trauma or malformation of the extremities, no edema Skin: No evidence of rash Neuro: Alert, no focal deficits Psychiatric: Cooperative INDEPENDENT INTERPRETATIONS: library monitor: (As interpreted by myself): - An order was placed for continuous cardiac monitoring - Patient was noted to be in sinus rhythm with a rate of 95 EKG: (As interpreted by myself): Rate: 98 Rhythm: Sinus rhythm Intervals: Within normal limits ST changes: No ST elevation Time: 0808 Chest x-ray: (As interpreted by myself): No focal infiltrate Interventions provided in ED: -DuoNeb breathing treatment, IV Solu-Medrol Medical Decision Making: IV was established and lab work obtained, patient was placed on library monitor. Patient was placed on nasal cannula oxygen with good improvement in his presenting hypoxia. Lab work shows no leukocytosis, hemoglobin is normal, platelet count is normal, venous blood gas was obtained that shows evidence of respiratory acidosis with a pH of 7.29 and a pCO2 of 69. CMP does not show any evidence of any critical findings. BNP is within normal limits, troponin is negative, viral panel testing is positive for enterovirus/rhinovirus. I suspect the patient likely has an element of COPD exacerbation from viral upper respiratory infection causing his hypoxia. On my reassessment his nasal cannula oxygen was removed following his DuoNeb breathing treatment and his oxygen saturation is at 89%. Given the patient's hypoxia, in addition to presenting wheezing with viral upper respiratory infection, I think he would benefit from admission to the hospital for further management. I discussed the patient's presentation with the on-call hospitalist for [facility], Dr. Yuan, and the patient was placed for admission in stable condition. Consultants/Discussions held with other healthcare providers: -Hospitalist, Dr. Yuan Disposition discussion held by myself with: -Patient * CRITICAL CARE TIME: (36) minutes -Stabilization of hypoxia with presenting oxygen at 86% on room air requiring supplemental oxygen for correction, time spent at the bedside, interpretation of diagnostic studies, discussion with other healthcare providers and arrangement of admission. Diagnosis: 1. Hypoxia, acute 2. Viral upper respiratory infection, acute 3. Enterovirus/rhinovirus PCR testing positive 4. Hypercarbic respiratory failure, acute 5. 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 History of colonoscopy "a couple years ago" History of esophagogastroduodenoscopy (EGD) History of tonsillectomy History of tooth extraction wisdom teeth, regular teth Family History Mother Family hx of colon cancer Social History Smoking Status: Never smoker Second Hand Exposure: No; Do You Dip or Chew Tobacco: No; Hx Alcohol Use: Yes Alcohol type: wine Hx Substance Use: No Preferred Language: Czech Communication Ability: Effective Visual Impairment: No Limitations Sample Driller Required: No Beliefs That Will Affect Care: None Current Living Situation: Alone Feels Safe at Home: Yes Assistive Devices: Glasses, Hearing Aid - Bilateral and Other Allergies Allergies Allergy/AdvReac Type Severity Reaction Status Date / Time No Known Drug Allergies Allergy Unknown . Verified 09/25/22 13:37 Home Meds Home Medications Medication Instructions Recorded Confirmed bupropion HCl 100 mg tablet 150 mg PO BID 06/09/20 09/25/22 Results & Data (ED) Vital Signs Vital Signs - 24 hr 06/04/24 06:51 06/04/24 06:53 06/04/24 07:03 Temperature 35.5 C L Temperature Source Temporal Artery Scan Pulse Rate 108 H Pulse Rate [Apical] Pulse Rhythm [Apical] Respiratory Rate 18 Respiratory Effort / Characteristics Non-Labored Spontaneous Respiratory Depth Normal Respiratory Pattern Regular Blood Pressure 134/83 Blood Pressure [Right Arm] Blood Pressure Mean 100 Blood Pressure Mean [Right Arm] Blood Pressure Position Sitting Pulse Oximetry 87 L 86 L 86 L Oxygen Delivery Method Room Air Room Air Room Air Oxygen Flow Rate Sepsis Recent Fever Within 48 Hours No Sepsis New/Unexplained Change in Mental Status N/A Sepsis Action Taken by Nursing No Action Required Oxygen Flow Rate - Titration Pulse Oximetry Post Tiitration 06/04/24 07:03 06/04/24 07:40 06/04/24 07:40 Temperature Temperature Source Pulse Rate Pulse Rate [Apical] 87 Pulse Rhythm [Apical] Regular Respiratory Rate 20 Respiratory Effort / Characteristics Respiratory Depth Normal Respiratory Pattern Blood Pressure Blood Pressure [Right Arm] 131/92 Blood Pressure Mean Blood Pressure Mean [Right Arm] 105 Blood Pressure Position Pulse Oximetry 86 L 99 99 Oxygen Delivery Method Nasal Cannula Nebulizer Nebulizer Oxygen Flow Rate 2 Sepsis Recent Fever Within 48 Hours Sepsis New/Unexplained Change in Mental Status Sepsis Action Taken by Nursing Oxygen Flow Rate - Titration Pulse Oximetry Post Tiitration 06/04/24 08:12 06/04/24 08:12 06/04/24 08:13 Temperature Temperature Source Pulse Rate 94 H Pulse Rate [Apical] Pulse Rhythm [Apical] Respiratory Rate Respiratory Effort / Characteristics Respiratory Depth Respiratory Pattern Blood Pressure Blood Pressure [Right Arm] Blood Pressure Mean Blood Pressure Mean [Right Arm] Blood Pressure Position Pulse Oximetry 100 89 L Oxygen Delivery Method Nebulizer Room Air Oxygen Flow Rate 6 Sepsis Recent Fever Within 48 Hours Sepsis New/Unexplained Change in Mental Status Sepsis Action Taken by Nursing Oxygen Flow Rate - Titration 0 2 Pulse Oximetry Post Tiitration 89 L 93 Laboratory Data 06/04/24 07:13 06/04/24 07:13 Lab Results 06/04/24 06/04/24 Range/Units 07:04 07:13 WBC 5.91 (4.8-10.8) K/ul RBC 5.07 (4.70-6.10) M/uL Hgb 15.1 (14.0-18.0) g/dl Hct 47.9 (42.0-52.0) % MCV 94.5 (80.0-100.0) fL MCH 29.8 (25.0-34.0) pg MCHC 31.5 L (32.0-36.0) g/dL RDW Std Deviation 46.3 (36.4-46.3) fL RDW Coeff of [place]leth 13.4 (11.5-14.5) % Plt Count 182 (130-400) K/uL MPV 10.1 (9.4-12.4) fL Immature Gran % (Auto) 0.3 % Neut % (Auto) 77.6 % Lymph % (Auto) 6.9 % Simpson % (Auto) 13.9 % Eos % (Auto) 1.0 % Baso % (Auto) 0.3 % Neut # (Auto) 4.58 (1.40-6.50) K/uL Lymph # (Auto) 0.41 L (1.20-3.40) K/uL Simpson # (Auto) 0.82 H (0.11-0.59) K/uL Eos # (Auto) 0.06 (0.00-0.50) K/uL Baso # (Auto) 0.02 (0.00-0.20) K/uL Immature Gran # (Auto) 0.02 (0.01-0.20) K/uL PT 10.7 (9.0-12.0) Seconds INR 1.0 (0.9-1.1) VBG pH 7.29 L (7.36-7.41) VBG pCO2 69 H (38-50) mmHg VBG pO2 41 mmHg VBG HCO3 33 mmol/L VBG O2 Saturation 70.6 % VBG Base Excess 4.1 mEq/L Sodium 140 (136-145) mmol/L Potassium 4.3 (3.5-5.1) mmol/L Chloride 101 (98-107) mmol/L Carbon Dioxide 33 H (21-32) mmol/L Anion Gap 6 (3-11) BUN 11 (6-23) mg/dl Creatinine 0.72 (0.6-1.4) mg/dl Est Cr Clr Drug Dosing 69.3 ml/min Est GFR ( Amer) 105.8 ml/min Est GFR (Non-Af Amer) 91.3 ml/min BUN/Creatinine Ratio 15.3 (10-20) Glucose 118 H (70-99(Fasting)) mg/dl Lactate 1.2 (0.4-2.0) mmol/L Calcium 9.1 (8.6-10.3) mg/dl Magnesium 2.1 (1.7-2.4) mg/dl Total Bilirubin 0.6 (0.2-1.0) mg/dl Direct Bilirubin 0.1 (0-0.2) mg/dl AST 19 (13-39) U/L ALT 9 (7-52) U/L Alkaline Phosphatase 76 (34-104) U/L Troponin I High Sens 5.4 (0-20) pg/ml B-Natriuretic Peptide 44 (0-100) pg/ml Total Protein 7.2 (6.0-8.3) gm/dl Albumin 4.7 (3.4-5.0) gm/dl Procalcitonin < 0.02 (0-0.5) ng/ml Adenovirus (PCR) Not Detected (NotDetected) B. pertussis DNA (PCR) Not Detected (NotDetected) B.parapertussis DNA PCR Not Detected (NotDetected) C. pneumoniae DNA (PCR) Not Detected (NotDetected) Coronavirus OC43 (PCR) Not Detected (NotDetected) Coronavirus HKU1 (PCR) Not Detected (NotDetected) Coronavirus 229E (PCR) Not Detected (NotDetected) SARS-CoV-2 (PCR) Not Detected (NotDetected) Coronavirus NL63 (PCR) Not Detected (NotDetected) Human Metapneumovir PCR Not Detected (NotDetected) Influenza Type A (PCR) Not Detected (NotDetected) Influenza Type B (PCR) Not Detected (NotDetected) M. pneumoniae (PCR) Not Detected (NotDetected) Parainfluenza 1 (PCR) Not Detected (NotDetected) Parainfluenza 2 (PCR) Not Detected (NotDetected) Parainfluenza 3 (PCR) Not Detected (NotDetected) Parainfluenza 4 (PCR) Not Detected (NotDetected) RSV (PCR) Not Detected (NotDetected) Entero/Rhino (PCR) DETECTED A (NotDetected) Administered Medications Discontinued Medications Albuterol (Albut/Ipratrop 3mg/0.5mg Neb 3 Ml Vial) 3 ml NEB NOW STA; Protocol Stop: 06/04/24 07:12 Last Admin: 06/04/24 07:32 Dose: 3 ml Documented By: ANTONIA Sodium Chloride (Nss) 500 mls @ 999 mls/hr IV .Q31M ONE Stop: 06/04/24 07:42 Last Infusion: 06/04/24 08:17 Dose: Infused Documented By: Admin: 06/04/24 07:32 Dose: 999 mls/hr Documented By: ANTONIA Methylprednisolone (Methylprednisolone 125 Mg/2 Ml Vial) 80 mg IV NOW STA Stop: 06/04/24 07:55 Last Admin: 06/04/24 08:07 Dose: 80 mg Documented By: ANTONIA Imaging Data Radiologist's Impression: Chest X-Ray 06/04/24 07:01 XR chest 1V portable HISTORY: 73 years-old Male Sepsis acute sepsis COMPARISON: Chest radiograph 01/27/2020, PET/CT 07/30/2023. TECHNIQUE: AP view of the chest FINDINGS: Cardiac silhouette is normal. There is mild prominence of the knee right hilar and paratracheal tissues. No pneumothorax, pleural effusion or airspace consolidation. Spondylotic spurring of the spine. IMPRESSION: 1. No acute process of the chest. 2. Possible underlying mediastinal lymphadenopathy. ACT 112: Negative or not required by law. The above report was generated using voice recognition software. It may contain grammatical, syntax or spelling errors. Electronically signed by: You Falcon M.D. 06/04/2024 7:52 AM Discharge Plan Visit Data Chief Complaint: Flu Like Symptoms Stated Complaint: RESPIRATORY FLU SYMPTOMS ED Provider: Jarred Chino Discharge Problem: Hypoxia Forms Stand Alone Forms: [facility] Prescriptions Prescriptions: No Action bupropion HCl 100 mg Tablet 150 mg PO BID Referrals Referrals: Justyn Reardon, [Primary Care Provider] -
[2024-06-04] MEDS: SODIUM CHLORIDE 0.9% 500 ML IV ONE (07:32)
[2024-06-04] MEDS: ALBUT/IPRATROP 3MG/0.5MG NEB 3 ML VIAL NEB STA (07:32)
[2024-06-04 07:34] LABS: Base Excess VBG 4.1 mEq/L; HCO3 VBG 33 mmol/L; Oxygen Saturation VBG 70.6 %; PCO2 VBG 69 mmHg (38-50); PO2 VBG 41 mmHg; pH VBG 7.29 (7.36-7.41)
[2024-06-04 07:50] LABS: Basophils # (auto) 0.02 K/uL (0.00-0.20); Basophils % (auto) 0.3 %; Eosinophils # (auto) 0.06 K/uL (0.00-0.50); Hematocrit (blood only) 47.9 % (42.0-52.0); Hemoglobin 15.1 g/dl (14.0-18.0); Immature Granulocytes # (auto) 0.02 K/uL (0.01-0.20); Immature Granulocytes % (auto) 0.3 %; Lymphocytes # (auto) 0.41 K/uL (1.20-3.40); Lymphocytes % (auto) 6.9 %; Mean Corpuscular Hemoglobin 29.8 pg (25.0-34.0); Mean Corpuscular Hgb Conc 31.5 g/dL (32.0-36.0); Mean Corpuscular Volume 94.5 fL (80.0-100.0); Mean Platelet Volume 10.1 fL (9.4-12.4); Monocytes # (auto) 0.82 K/uL (0.11-0.59); Monocytes % (auto) 13.9 %; Neutrophils # (auto) 4.58 K/uL (1.40-6.50); Neutrophils % (auto) 77.6 %; Platelet Count 182 K/uL (130-400); RDW Coefficient of Variation 13.4 % (11.5-14.5); RDW Standard Deviation 46.3 fL (36.4-46.3); Red Blood Count 5.07 M/uL (4.70-6.10); White Blood Count 5.91 K/ul (4.8-10.8)
--- NOTE | 2024-06-04 07:54 | XRay Report ---
XR chest 1V portable HISTORY: 73 years-old Male Sepsis acute sepsis COMPARISON: Chest radiograph 01/27/2020, PET/CT 07/30/2023. TECHNIQUE: AP view of the chest FINDINGS: Cardiac silhouette is normal. There is mild prominence of the knee right hilar and paratracheal tissu es. No pneumothorax, pleural effusion or airspace consolidation. Spondylotic spurring of the spine. IMPRESSION: 1. No acute process of the chest. 2. Possible underlying mediastinal lymphadenopathy. ACT 112: Negative or not required by law. The above report was generated using voice recognition software. It may contain grammatical, syntax o r spelling errors. Electronically signed by: You Falcon M.D. 06/04/2024 7:52 AM
[2024-06-04 07:59] LABS: Albumin Level 4.7 gm/dl (3.4-5.0); BUN Creatinine Ratio 15.3 (10-20); Bilirubin Direct 0.1 mg/dl (0-0.2); Bilirubin,Total 0.6 mg/dl (0.2-1.0); Calcium 9.1 mg/dl (8.6-10.3); Creatinine Clr Calc Pharmacy 69.3 ml/min; Est GFR (African American) 105.8 ml/min; Est GFR (Non-African American) 91.3 ml/min; Magnesium 2.1 mg/dl (1.7-2.4); Potassium 4.3 mmol/L (3.5-5.1); Total Protein 7.2 gm/dl (6.0-8.3)
[2024-06-04 08:02] LABS: Adenovirus PCR Not Detected (NotDetected); Bordetella parapertussis PCR Not Detected (NotDetected); Bordetella pertussis PCR Not Detected (NotDetected); Chlamydia pneumoniae PCR Not Detected (NotDetected); Coronavirus 229E PCR Not Detected (NotDetected); Coronavirus CoV-2 (COVID19)PCR Not Detected (NotDetected); Coronavirus HKU1 PCR Not Detected (NotDetected); Coronavirus NL63 PCR Not Detected (NotDetected); Coronavirus OC43PCR Not Detected (NotDetected); Human Metapneumovirus PCR Not Detected (NotDetected); Influenza A PCR Not Detected (NotDetected); Influenza B PCR Not Detected (NotDetected); Mycoplasma pneumoniae PCR Not Detected (NotDetected); Parainfluenza Virus 1 PCR Not Detected (NotDetected); Parainfluenza Virus 2 PCR Not Detected (NotDetected); Parainfluenza Virus 3 PCR Not Detected (NotDetected); Parainfluenza Virus 4 PCR Not Detected (NotDetected); Respiratory Syncytial VirusPCR Not Detected (NotDetected); Rhinovirus/Enterovirus PCR DETECTED (NotDetected)
[2024-06-04 08:05] LABS: Troponin I High Sensitivity 5.4 pg/ml (0-20)
[2024-06-04] MEDS: methylPREDNISolone 125 MG/2 ML VIAL IV STA (08:07)
[2024-06-04 08:14] LABS: Prothrombin Time 10.7 Seconds (9.0-12.0)
--- NOTE | 2024-06-04 08:54 | Electrocardiogram Report ---
Test Reason : Blood Pressure : */* mmHG Vent. Rate : 98 BPM Atrial Rate : 98 BPM P-R Int : 164 ms QRS Dur : 76 ms QT Int : 354 ms P-R-T Axes : 80 -1 72 degrees QTcB Int : 451 ms Sinus rhythm with occasional Premature ventricular complexes Otherwise normal ECG When compared with ECG of 27-Jan-2020 08:08, Premature ventricular complexes are now Present Nonspecific T wave abnormality has replaced inverted T waves in Lateral leads Confirmed by Noel Dupree ([id number]) on 06/04/2024 8:54:32 AM Referred By: REFERRED SELF Confirmed By: Noel Dupree
--- NOTE | 2024-06-04 09:02 | History & Physical Report ---
Date of Service June 04, 2024 Assessment & Plan (1) Acute respiratory failure with hypoxia and hypercapnia: (2) Acute bronchitis due to Rhinovirus: (3) Suspected chronic obstructive pulmonary disease based on initial evaluation: Plan: With acute exacerbation (4) B-cell lymphoma: Plan Patient presents with acute hypoxic hypercarbic respiratory failure in the setting of rhinovirus bronchitis and suspected COPD exacerbation. Patient is critically ill requires hospital level care including oxygen support and medical interventions. Admit to the MedSurg unit Support with oxygen, titrate as able DuoNebs scheduled and as needed Oral prednisone Scheduled mucolytic's and antitussives As needed Hycodan for cough At this time no indication for antibiotic therapy. Patient with viral bronchitis as a source of his symptoms will continue to monitor Continue his outpatient medications as ordered History of Present Illness Chief Complaint: Cough, congestion, mild shortness of breath Primary Care Provider: Justyn Reardon DO Patient is a 73-year-old gentleman who presents to the emergency room today with above complaints. Reports that a few weeks ago he is in [place] and was exposed to COVID. More recently he was visiting family in [place] and several then had some upper respiratory infection type symptoms. He returned to beginning the week started with a bit of a cough. As the week progressed got more congested. Last night he had intractable cough. Unable to really get good sleep. And noted to be a little bit more short of breath with his usual activity this morning prompting him to seek attention in the emergency room. In the emergency room was noted to be hypoxic on room air and tested positive for rhinovirus. With these findings he was referred to our service for further evaluation. Time my evaluation patient states he is feeling little bit more comfortable on supplemental oxygen. He denies any noted fevers. But does admit to being more tired and fatigued. His biggest complaint is this intractable cough that is interrupting his sleep. He does have some production of mucus which she reports is clear. No blood in the sputum. He states he did have a couple episodes of loose stools this week but no blood in the stool. Denies any problems with his bladder. No swelling in his hands arms legs or feet. No chest pain. No significant headaches, lightheadedness or dizziness. States he does have a history of smoking. However, he has never needed inhalers never been definitively diagnosed with COPD and never as needed steroids for any type of lung issues. Allergies Allergy/AdvReac Type Severity Reaction Status Date / Time No Known Drug Allergies Allergy Unknown . Verified 09/25/22 13:37 Home Medications Medication Instructions Recorded Confirmed Type bupropion HCl 100 mg tablet 150 mg PO BID 06/09/20 09/25/22 History Past Med/Surg History Problem List (Updated 06/04/24 @ 09:01 by Donato Carrero DO) Suspected chronic obstructive pulmonary disease based on initial evaluation B-cell lymphoma Acute bronchitis due to Rhinovirus Acute respiratory failure with hypoxia and hypercapnia Hypoxia (Acute) Encounter for pre-operative examination Lymphoma hx Medical History Anxiety Hx of hepatitis Lymphoma hx Surgical History H/O lymph node biopsy RT AXILLARY LEFT POSTERIOR 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 History of colonoscopy "a couple years ago" History of esophagogastroduodenoscopy (EGD) History of tonsillectomy History of tooth extraction wisdom teeth, regular teth Family History Mother Family hx of colon cancer Social History Smoking Status: Never smoker Second Hand Exposure: No; Do You Dip or Chew Tobacco: No; Hx Alcohol Use: Yes Alcohol type: wine Hx Substance Use: No Preferred Language: Mauritanian Communication Ability: Effective Visual Impairment: No Limitations Cotton Ginner Required: No Beliefs That Will Affect Care: None Current Living Situation: Alone Feels Safe at Home: Yes Assistive Devices: Glasses, Hearing Aid - Bilateral and Other Review of Systems Review of Systems: Pertinent positive and negative review of systems as mentioned in the HPI Physical Exam Physical Exam: Constitutional: Alert, ill in appearance, nontoxic HEENT: Mucous membranes moist. Sclera clear Neck: Soft, no adenopathy Lungs: Decreased breath sounds bilaterally, prolonged expiratory phase, poor airflow, tight wheezing throughout heard best anteriorly CV: S1-S2, regular Abdomen: Soft, nontender, nondistended Extremities: No significant edema Musculoskeletal: No significant joint tenderness Neuro: No focal deficits Psych: Cooperative, normal mood Results & Data Results & Data Vital Signs (Past 12 Hours) Vital Signs Temp Pulse Pulse Resp BP BP Pulse Ox 06/04/24 08:13 89 L 06/04/24 08:12 94 H 06/04/24 08:12 100 06/04/24 07:40 87 20 131/92 99 06/04/24 07:40 99 06/04/24 07:03 86 L 06/04/24 07:03 86 L 06/04/24 06:53 35.5 C L 108 H 18 134/83 86 L 06/04/24 06:51 87 L O2 Del Method O2 Flow Rate 06/04/24 08:13 Room Air 06/04/24 08:12 06/04/24 08:12 Nebulizer 6 06/04/24 07:40 Nebulizer 06/04/24 07:40 Nebulizer 06/04/24 07:03 Nasal Cannula 2 06/04/24 07:03 Room Air 06/04/24 06:53 Room Air 06/04/24 06:51 Room Air Diagnostic Findings Reviewed imaging, laboratory and diagnostic studies. Pertinent findings as below. Personally reviewed chest x-ray images, hyperinflated lungs, no consolidative infiltrate Personally reviewed EKG, sinus rhythm no acute ST-T wave changes Respiratory viral panel positive for rhinovirus CBC and BMP reviewed, stable Venous blood gas pO2 41, pCO2 69 Code Status & VTE Plan VTE Prophylaxis Plan VTE Prophylaxis will be ordered: Yes
[2024-06-04] MEDS ORDERED: ACETAMINOPHEN 325 MG TAB PO PRN (10:20)
[2024-06-04] MEDS ORDERED: MAGNESIUM HYDROXIDE SUSP 30 ML UDC PO PRN (10:20)
[2024-06-04] MEDS ORDERED: ONDANSETRON INJ 2 MG/ML 2 ML VIAL IV PRN (10:20)
[2024-06-04] MEDS ORDERED: ALBUT/IPRATROP 3MG/0.5MG NEB 3 ML VIAL NEB PRN (10:20)
[2024-06-04] MEDS ORDERED: ALUMINUM/MAGNESIUM SUSP 30 ML UDC PO PRN (10:20)
[2024-06-04] MEDS ORDERED: MELATONIN 3 MG TAB PO PRN (10:20)
[2024-06-04] MEDS: guaiFENesin 600 MG TABCR PO SCH (11:20)
[2024-06-04] MEDS: BENZONATATE 100 MG CAPSULE PO SCH (11:20)
[2024-06-04] MEDS: predniSONE 20 MG TAB PO SCH (11:20)
[2024-06-04] MEDS: ENOXAPARIN INJ 40 MG/0.4 ML SYR SQ SCH (11:21)
[2024-06-04] MEDS: ALBUT/IPRATROP 3MG/0.5MG NEB 3 ML VIAL INH SCH ×2 (11:26→14:37)
[2024-06-04] MEDS: COUGH DROP (SUGAR FREE) LOZ 24 LOZ/1 BOX BUCCAL PRN (16:47)
[2024-06-04] MEDS: buPROPion XL 150 MG TABCR PO SCH (20:55)
[2024-06-05 07:48] VITALS: BP 122/80; TEMP 97.9
[2024-06-05] MEDS: HYDROcodone/HOMATROPINE SYRUP 5MG/1.5MG 5ML UDP PO PRN (09:07)
--- NOTE | 2024-06-05 11:30 | Hospitalist Progress Note ---
Date of Service June 05, 2024 Assessment & Plan (1) Acute bronchitis due to Rhinovirus: Plan: Patient presents with acute hypoxic hypercarbic respiratory failure in the setting of rhinovirus bronchitis and suspected hyperreactive airway disease. Patient is critically ill requires hospital level care including oxygen support and medical interventions. Support with oxygen, titrate as able DuoNebs scheduled and as needed Oral prednisone Scheduled mucolytic's and antitussives As needed Hycodan for cough At this time no indication for antibiotic therapy. Patient with viral bronchitis as a source of his symptoms will continue to monitor Clinically much better today with minimal wheezing at rest and no shortness of breath even with activities He will have 2 step O2 saturation test prior to discharge this afternoon (2) Acute respiratory failure with hypoxia and hypercapnia: Plan: As above (3) Suspected chronic obstructive pulmonary disease based on initial evaluation: Plan: No history of COPD and/or asthma Likely to have hyperreactive airways disease (4) B-cell lymphoma: Plan: Has been followed up by Dr. Coleman as an outpatient No evidence of recurrence Will advised to have a follow-up Chest x-ray showed Hilar adenopathy Admission and Anticipated Discharge Date Admission Date: June 04, 2024 Subjective 06/05/2024 The patient was seen and examined in medical floor He has been feeling much better and wants to go home Minimal wheezing and reported to have oxygen saturation less than 88 with ambulation before Advised to have today stable O2 saturation test prior to discharge today Review of Systems Review of Systems: All systems reviewed and are unremarkable except as noted below Physical Exam Physical Exam: Lying in bed without any acute distress Constitutional: well developed, well nourished and average body habitus; not ill appearing Eyes: PERRL, conjunctivae normal, anicteric sclerae ENMT: external ear and nose normal, oropharynx normal Neck: trachea midline, no thyromegaly Respiratory: no respiratory distress Auscultation: + diminished lung sounds and + wheezes (Mild wheezing all over) Cardiovascular: Rate/Rhythm: regular rate and regular rhythm; not tachycardic Heart Sounds: normal S1 and normal S2; no murmur Extremities: no edema Gastrointestinal (Abdomen): Inspection/Auscultation: normal bowel sounds; abdomen not distended Percussion/Palpation: abdomen soft; abdomen nontender Musculoskeletal: No acute arthritis involving any of the joint Neurologic: normal touch/pain/proprioception and moves all extremities; no focal motor deficits Psychiatric: A+Ox3, euthymic affect Lymphatic: no cervical or axillary lymphadenopathy Results & Data Results & Data Vital Signs (Past 12 Hours) Vital Signs Temp Pulse Resp BP Pulse Ox O2 Del Method O2 Flow Rate 06/05/24 11:17 95 H 20 89 L Room Air 06/05/24 08:15 18 91 Nasal Cannula 1 06/05/24 08:00 20 89 L Room Air 06/05/24 07:47 36.6 C 68 18 122/80 99 Room Air 06/05/24 07:26 36.5 C 91 H 20 127/74 94 Nasal Cannula 2 06/05/24 07:15 91 H 16 97 Nasal Cannula 2 Medications Administered Current Inpatient Medications Acetaminophen (Acetaminophen 325 Mg Tab) 650 mg PO Q4H PRN PRN Reason: pain/fever Stop: 07/04/24 10:19 Al Hydrox/Mg Hydrox/Simethicone (Aluminum/Magnesium Susp 30 Ml Udc) 30 ml PO Q6H PRN PRN Reason: Dyspepsia Stop: 07/04/24 10:19 Albuterol (Albut/Ipratrop 3mg/0.5mg Neb 3 Ml Vial) 3 ml NEB Q2H PRN PRN Reason: Shortness of Breath/Wheezing Stop: 07/04/24 10:19 Albuterol (Albut/Ipratrop 3mg/0.5mg Neb 3 Ml Vial) 3 ml INH QIDR [facility] Stop: 07/04/24 14:59 Last Admin: 06/05/24 11:14 Dose: 3 ml Benzonatate (Benzonatate 100 Mg Capsule) 200 mg PO TID [facility]US Stop: 07/04/24 10:59 Last Admin: 06/05/24 08:53 Dose: 200 mg Bupropion HCl (Bupropion Xl 150 Mg Tabcr) 150 mg PO BID [facility] Stop: 07/04/24 20:59 Last Admin: 06/05/24 08:54 Dose: 150 mg Enoxaparin Sodium (Enoxaparin Inj 40 Mg/0.4 Ml Syr) 40 mg SQ Q24H [facility] Stop: 07/04/24 10:59 Last Admin: 06/04/24 11:21 Dose: Not Given Guaifenesin (Guaifenesin 600 Mg Tabcr) 1,200 mg PO Q12 [facility] Stop: 07/04/24 10:59 Last Admin: 06/05/24 08:53 Dose: 1,200 mg Hydrocodone Bit/Homatropine Methylb (Hydrocodone/Homatropine Syrup 5mg/1.5mg 5ml Udp) 5 ml PO Q6H PRN PRN Reason: Cough Stop: 06/18/24 10:19 Last Admin: 06/05/24 09:07 Dose: 5 ml Magnesium Hydroxide (Magnesium Hydroxide Susp 30 Ml Udc) 30 ml PO Q6H PRN PRN Reason: Constipation Stop: 07/04/24 10:19 Melatonin (Melatonin 3 Mg Tab) 6 mg PO HS PRN PRN Reason: Insomnia Stop: 07/04/24 10:19 Menthol (Cough Drop (Sugar Free) Catia 24 Catia/1 Box) 1 catia BUCCAL PRN PRN PRN Reason: Sore Throat Stop: 07/04/24 16:15 Last Admin: 06/04/24 16:47 Dose: 1 catia Ondansetron HCl (Ondansetron Inj 2 Mg/Ml 2 Ml Vial) 4 mg IV Q6H PRN PRN Reason: Nausea Stop: 07/04/24 10:19 Prednisone (Prednisone 20 Mg Tab) 40 mg PO QAM [facility] Stop: 06/09/24 10:59 Last Admin: 06/05/24 08:54 Dose: 40 mg
[2024-06-05 11:40] VITALS: O2SAT 91
[2024-06-05 12:50] VITALS: PULSE 87; RESP 20
--- NOTE | 2024-06-06 07:45 | Discharge Summary ---
Date of Service June 06, 2024 Admission HPI Per Admitting Provider Patient is a 73-year-old gentleman who presents to the emergency room today with above complaints. Reports that a few weeks ago he is in [place] and was exposed to COVID. More recently he was visiting family in [place] and several then had some upper respiratory infection type symptoms. He returned to beginning the week started with a bit of a cough. As the week progressed got more congested. Last night he had intractable cough. Unable to really get good sleep. And noted to be a little bit more short of breath with his usual activity this morning prompting him to seek attention in the emergency room. In the emergency room was noted to be hypoxic on room air and tested positive for rhinovirus. With these findings he was referred to our service for further evaluation. Time my evaluation patient states he is feeling little bit more comfortable on supplemental oxygen. He denies any noted fevers. But does admit to being more tired and fatigued. His biggest complaint is this intractable cough that is interrupting his sleep. He does have some production of mucus which she reports is clear. No blood in the sputum. He states he did have a couple episodes of loose stools this week but no blood in the stool. Denies any problems with his bladder. No swelling in his hands arms legs or feet. No chest pain. No significant headaches, lightheadedness or dizziness. States he does have a his tory of smoking. However, he has never needed inhalers never been definitively diagnosed with COPD and never as needed steroids for any type of lung issues. Admission Exam Per Admitting Provider Physical Exam: Constitutional: Alert, ill in appearance, nontoxic HEENT: Mucous membranes moist. Sclera clear Neck: Soft, no adenopathy Lungs: Decreased breath sounds bilaterally, prolonged expiratory phase, poor airflow, tight wheezing throughout heard best anteriorly CV: S1-S2, regular Abdomen: Soft, nontender, nondistended Extremities: No significant edema Musculoskeletal: No significant joint tenderness Neuro: No focal deficits Psych: Cooperative, normal mood Principal Diagnosis Acute bronchitis, rhinovirus infection, possible hyperreactive airway disease, Discharge Exam Lying in bed without any acute distress Constitutional well developed, well nourished and average body habitus; not ill appearing Eyes PERRL, conjunctivae normal, anicteric sclerae ENMT external ear and nose normal, oropharynx normal Neck trachea midline, no thyromegaly Respiratory no respiratory distress Auscultation: + diminished lung sounds and + wheezes (Mild wheezing all over) Cardiovascular Rate/Rhythm: regular rate and regular rhythm; not tachycardic Heart Sounds: normal S1 and normal S2; no murmur Extremities: no edema Gastrointestinal (Abdomen) Inspection/Auscultation: normal bowel sounds; abdomen not distended Percussion/Palpation: abdomen soft; abdomen nontender Neurologic normal touch/pain/proprioception and moves all extremities; no focal motor deficits Psychiatric A+Ox3, euthymic affect Lymphatic no cervical or axillary lymphadenopathy Discharge Data Allergies Allergy/AdvReac Type Severity Reaction Status Date / Time No Known Drug Allergies Allergy Unknown . Verified 09/25/22 13:37 Consultations 06/04/24 08:22 ED Decision to Admit Stat Hospital Course (1) Acute bronchitis due to Rhinovirus: Patient presents with acute hypoxic hypercarbic respiratory failure in the setting of rhinovirus bronchitis and suspected hyperreactive airway disease. Patient is critically ill requires hospital level care including oxygen support and medical interventions. Support with oxygen, titrate as able DuoNebs scheduled and as needed Oral prednisone Scheduled mucolytic's and antitussives As needed Hycodan for cough At this time no indication for antibiotic therapy. Patient with viral bronchitis as a source of his symptoms will continue to monitor Clinically much better today with minimal wheezing at rest and no shortness of breath even with activities He will have 2 step O2 saturation test prior to discharge this afternoon (2) Acute respiratory failure with hypoxia and hypercapnia: As above (3) Suspected chronic obstructive pulmonary disease based on initial evaluation: No history of COPD and/or asthma Likely to have hyperreactive airways disease (4) B-cell lymphoma: Has been followed up by Dr. Coleman as an outpatient No evidence of recurrence Will advised to have a follow-up Chest x-ray showed Hilar adenopathy Total Time Total Time Spent Total Time Spent (In Minutes): 35 minutes Discharge Plan Discharge Items Patient Disposition: Home - Self-Care Reason For Visit: RESPIRATORY FAILURE Discharge Diagnosis: Acute bronchitis, rhinovirus infection, possible hyperreactive airway disease, Condition on Discharge: Good Activity: Resume your previous activity Non-emergency contact: Primary Care Provider Call non-emergency contact if: you have any medication questions and your symptoms worsen Follow-up/Referrals: Justyn Reardon, [Primary Care Provider] - (Your doctor's office will give you a call on Friday with an appointment within 7 days) Diet: Regular Addtl Attending Provider Instructions: Please take precautions to avoid falls Try to avoid allergens which is causing bronchospasm Take inhalers as advised Please keep appointment with your healthcare provider Pending Studies at Discharge: No Stand-Alone Forms: [facility], Smoking Cessation Medications and DC Order Prescriptions: New prednisone 20 mg Tablet 40 mg PO QAM 3 Days Qty: 6 0RF benzonatate 100 mg Capsule 200 mg PO TID Qty: 30 0RF albuterol sulfate 90 mcg/actuation HFA aerosol inhaler 2 inh inhalation Q6H PRN (Reason: shortness of breath or wheezing) Qty: 8.5 0RF Continued bupropion HCl 100 mg Tablet 150 mg PO BID Discharge Orders: Discharge Order (Routine); Ordered 06/05/24 Ordered By: Darvin Singh Admission Data Admit Date/Time: 06/04/24 08:54 Attending Provider: Darvin Singh Admit Provider: Donato Carrero Primary Care Provider: Justyn Reardon Other Providers: Mary Yuan; Donato Carrero Other Interventions: Discharge Summary Assessment (RN) Last Done: 06/05/24 12:49
== END 2024-06-05 13:10 | disposition home or self-care (01) | DRG 202 ==
LOC: ED 06:49 → SUATTDRO 08:54 → 3E 08:54